=== PATIENT | female | born 1940 ===

== ENCOUNTER 2017-02-12 12:05 | Emergency (ER) | payer MEDICARE, OTHER ==
[2017-02-12 12:15] VITALS: BMI 26.5
--- NOTE | 2017-02-12 13:40 | RAD ---
HISTORY: Pneumonia COMPARISON: No prior. TECHNIQUE: Chest PA and lateral FINDINGS: LUNGS: No active pulmonary disease. PLEURA: No significant pleural effusion identified. No pneumothorax apparent. CARDIOVASCULAR: Mild cardiomegaly. OSSEOUS STRUCTURES: No significant abnormalities. VISUALIZED UPPER ABDOMEN: Normal. OTHER FINDINGS: None. IMPRESSION: No radiographic evidence of pneumonia. Mild cardiomegaly.
[2017-02-12 13:54] LABS: BASO % 0.5 % (0.0-2.0); EOS # 0.1 K/uL (0.0-0.7); EOS % 3.4 % (0.0-4.0); HEMATOCRIT 37.5 % (34.0-47.0); LYMPH # 1.2 K/uL (1.0-4.3); LYMPH % 30.8 % (20.0-40.0); MEAN CELL VOLUME 91.9 fL (81.0-99.0); MEAN CORPUSCULAR HEMOGLOBIN 30.6 pg (27.0-31.0); MEAN CORPUSCULAR HGB CONC 33.3 g/dL (33.0-37.0); MEAN PLATELET VOLUME 8.8 fL (7.2-11.7); MONO # 0.5 K/uL (0.0-0.8); NRBC % 0.1 % (0.0-2.0); WHITE BLOOD COUNT 3.8 K/uL (4.8-10.8)
[2017-02-12 14:03] LABS: CHLORIDE 99 mmol/L (98-107); POTASSIUM 4.1 mmol/L (3.6-5.2); SODIUM 139 mmol/L (132-148)
[2017-02-12 14:05] LABS: AST/SGOT 28 U/L (14-36); BILIRUBIN,TOTAL 0.4 mg/dL (0.2-1.3); CARBON DIOXIDE 31 mmol/L (22-30); GFR AFRICAN-AMERICAN > 60
[2017-02-12 14:06] LABS: ALB/GLOB RATIO 1.6 (1.0-2.1); ALKALINE PHOSPHATASE 85 U/L (38-126); ALT/SGPT 31 U/L (9-52); BLOOD UREA NITROGEN 19 mg/dL (7-17); GLUCOSE,RANDOM 94 mg/dL (65-105); TOTAL PROTEIN 6.9 g/dL (6.3-8.3)
[2017-02-12 15:44] VITALS: BP 140/71; PULSE 60; RESP 18; TEMP 97.9; O2SAT 100
--- NOTE | 2017-02-12 16:02 | C.PDOC ---
History Of Present Illness 77 y/o female presents to ED with c/o cough for 1 week. Patient states cough was initially productive, but at this time, is now scant. Patient reports (+) fever when cough started but not currently. Denies chest pain, shortness of breath, abdominal pain. Patient went to PMD, given Z pack and cough medicine, states she is feeling better. Chief Complaint (Nursing): Cough, Cold, Congestion History Per: Patient History/Exam Limitations: no limitations Onset/Duration Of Symptoms: Days Current Symptoms Are (Timing): Still Present Associated Symptoms: Cough. denies: Fever, Chills, Nasal Congestion, Vomiting Ear Symptoms: Bilateral: None Recent travel outside of the [place]: No Past Medical History Reviewed: Historical Data, Nursing Documentation, Vital Signs Vital Signs: Last Vital Signs Temp 97.9 F 02/12/17 15:42 Pulse 60 02/12/17 15:42 Resp 18 02/12/17 15:42 BP 140/71 02/12/17 15:42 Pulse Ox 100 02/12/17 16:03 - Medical History PMH: Gastritis, HTN, Hypercholesterolemia Family History: States: Unknown Family Hx - Social History Hx Alcohol Use: No Hx Substance Use: No - Immunization History Hx Tetanus Toxoid Vaccination: No Hx Influenza Vaccination: No Hx Pneumococcal Vaccination: Yes Review Of Systems Except As Marked, All Systems Reviewed And Found Negative. Constitutional: Negative for: Fever, Chills Cardiovascular: Negative for: Chest Pain Respiratory: Positive for: Cough. Negative for: Shortness of Breath, Wheezing Gastrointestinal: Negative for: Nausea, Vomiting, Abdominal Pain Skin: Negative for: Rash Physical Exam - Physical Exam Appears: Non-toxic, No Acute Distress Skin: Normal Color, Warm, Dry Head: Atraumatic, Normacephalic Oral Mucosa: Moist Chest: Symmetrical Cardiovascular: Rhythm Regular Respiratory: Normal Breath Sounds, No Rales, No Rhonchi, No Wheezing Gastrointestinal/Abdominal: Soft, No Tenderness, No Guarding, No Rebound Back: Normal Inspection Extremity: Normal ROM, Capillary Refill (< 2 sec. ) Neurological/Psych: Oriented x3, Normal Speech, Normal Cognition ED Course And Treatment - Laboratory Results Result Diagrams: 02/12/17 13:51 02/12/17 13:51 O2 Sat by Pulse Oximetry: 100 (RA) Pulse Ox Interpretation: Normal - Radiology CXR: Interpreted by Me CXR Interpretation: Yes: No Acute Disease Progress Note: Labs, CxR ordered and reviewed. On reassessment, patient is resting comfortably, and is in no acute distress. Patient instructed to follow up with clinic/PMD within 1-2 days. Disposition - Disposition Referrals: Matthew Katz, [Non-Staff] - Disposition: HOME/ ROUTINE Disposition Time: 14:20 Condition: GOOD Additional Instructions: Thank you for letting us take care of you today. Your provider was Dr. Harden. You were treated for cough. The emergency medical care you received today was directed at your acute symptoms. If you were prescribed any medication , please fill it and take as directed. It may take several days for your symptoms to resolve. Return to the Emergency Department if your symptoms worsen , do not improve, or if you have any other problems. Please contact your doctor or call one of the physicians/clinics you have been referred to that are listed on the Patient Visit Information form that is included in your discharge packet. Bring any paperwork you were given at discharge with you along with any medications you are taking to your follow up visit. Our treatment cannot replace ongoing medical care by a primary care provider (PCP) outside of the emergency department. Thank you for allowing the [facility] team to be part of your care today. Follow up with your doctor in 3-4 days for re-evaluation. Instructions: Upper Respiratory Infection (ED) - Clinical Impression Clinical Impression: Upper respiratory infection - Scribe Statement The provider has reviewed the documentation as recorded by the Lynibes Sam All medical record entries made by the Lynibes were at my direction and personally dictated by me. I have reviewed the chart and agree that the record accurately reflects my personal performance of the history, physical exam, medical decision making, and the department course for this patient. I have also personally directed, reviewed, and agree with the discharge instructions and disposition.
== END 2017-02-12 15:44 | disposition home or self-care (01) ==
LOC: C.ER 12:05
DX: J06.9 Acute upper respiratory infection, unspecified (principal)

== ENCOUNTER 2017-11-12 15:00 | Emergency (ER) | payer MEDICARE, OTHER ==
[2017-11-12 15:53] VITALS: BMI 28.0
[2017-11-12 15:56] VITALS: BP 188/79; PULSE 60; RESP 18; TEMP 98; O2SAT 100
--- NOTE | 2017-11-12 23:10 | C.PDOC ---
History Of Present Illness 77 y/o female presents to the ED requesting medication for the varicose veins on her left lower extremity. Patient states she is currently being treated at another facility and has been taking Tylenol and Gabapentin. She denies fever, chills, recent trauma/injuries, extremity numbness/weakness. Time Seen by Provider: 11/12/17 18:05 Chief Complaint (Nursing): Lower Extremity Problem/Injury History Per: Patient History/Exam Limitations: no limitations Onset/Duration Of Symptoms: Hrs Current Symptoms Are (Timing): Still Present Additional History Per: Patient Past Medical History Reviewed: Historical Data, Nursing Documentation, Vital Signs Vital Signs: Last Vital Signs Temp 98.0 F 11/12/17 15:53 Pulse 60 11/12/17 15:53 Resp 18 11/12/17 15:53 BP 188/79 H 11/12/17 15:53 Pulse Ox 100 11/12/17 23:14 - Medical History PMH: Gastritis, HTN, Hypercholesterolemia Surgical History: No Surg Hx Family History: States: Unknown Family Hx - Social History Hx Alcohol Use: No Hx Substance Use: No - Immunization History Hx Tetanus Toxoid Vaccination: No Hx Influenza Vaccination: No Hx Pneumococcal Vaccination: Yes Review Of Systems Constitutional: Negative for: Fever, Chills Skin: Positive for: Other (varicose veins in left leg ) Neurological: Negative for: Weakness, Numbness Physical Exam - Physical Exam Appears: Non-toxic, No Acute Distress Skin: Normal Color, Warm, Dry Head: Atraumatic, Normacephalic Eye(s): bilateral: Normal Inspection Oral Mucosa: Moist Neck: Supple Chest: Symmetrical, No Deformity, No Tenderness Cardiovascular: Rhythm Regular, No Murmur Respiratory: Normal Breath Sounds, No Rales, No Rhonchi, No Wheezing Extremity: Normal ROM, Capillary Refill (less than 2 seconds ), Other (varicose veins noted in left lower extremity. mild edema bilaterally ) Pulses: Left Dorsalis Pedis: Normal, Right Dorsalis Pedis: Normal Neurological/Psych: Oriented x3, Normal Speech, Normal Cognition Gait: Steady ED Course And Treatment O2 Sat by Pulse Oximetry: 100 (on RA) Pulse Ox Interpretation: Normal Disposition - Disposition Referrals: Randall Gates MD [Staff Provider] - Disposition: HOME/ ROUTINE Disposition Time: 18:30 Condition: GOOD Additional Instructions: Thank you for letting us take care of you today. The emergency medical care you received today was directed at your acute symptoms. If you were prescribed any medication, please fill it and take as directed. It may take several days for your symptoms to resolve. Return to the Emergency Department if your symptoms worsen, do not improve, or if you have any other problems. Please contact your doctor or call one of the physicians/clinics you have been referred to that are listed on the Patient Visit Information form that is included in your discharge packet. Bring any paperwork you were given at discharge with you along with any medications you are taking to your follow up visit. Our treatment cannot replace ongoing medical care by a primary care provider (PCP) outside of the emergency department. Thank you for allowing the [facility] team to be part of your care today. Follow up with the vascular surgeon next week for re-evaluation and further management. Prescriptions: traMADol [Ultram] 25 mg PO Q8 PRN #15 tab PRN Reason: Pain, Severe (8-10) Instructions: Varicose Veins (ED) Forms: [employer] (Austrian) - Clinical Impression Clinical Impression: Varicose veins of left lower extremity - Scribe Statement The provider has reviewed the documentation as recorded by the Scribe (Lilo Silverio) Provider Attestation: All medical record entries made by the Scribe were at my direction and personally dictated by me. I have reviewed the chart and agree that the record accurately reflects my personal performance of the history, physical exam, medical decision making, and the department course for this patient. I have also personally directed, reviewed, and agree with the discharge instructions and disposition.
== END 2017-11-12 18:30 | disposition home or self-care (01) ==
LOC: C.ER 15:00
DX: I83.92 Asymptomatic varicose veins of left lower extremity (principal); E78.00 Pure hypercholesterolemia, unspecified; I10 Essential (primary) hypertension

== ENCOUNTER 2018-06-14 09:16 | Emergency (ER) | payer MEDICARE, OTHER ==
[2018-06-14 09:17] VITALS: BMI 28.0
[2018-06-14 09:26] VITALS: RESP 18
--- NOTE | 2018-06-14 10:12 | C.PDOC ---
History Of Present Illness 78 y/o female,/PMhx of HTN and gastritis, presents to the ER complaining of diarrhea and rectal bleeding which has been present for the past 2 days. Patient is also complaining of lower abdominal pain. Abdominal pain is crampy, only when she has a BM, does not fill toilet bowel w/ blood. No recent travel abroad or exotic foods. Denies having nausea, vomiting, vaginal bleeding, chest pain, shortness of breath, dysuria, urgency or frequency. Time Seen by Provider: 06/14/18 10:11 Chief Complaint (Nursing): Abdominal Pain History Per: Patient History/Exam Limitations: no limitations Onset/Duration Of Symptoms: Days Current Symptoms Are (Timing): Still Present Severity: Moderate Past Medical History Reviewed: Historical Data, Nursing Documentation, Vital Signs Vital Signs: Last Vital Signs Temp 98.6 F 06/14/18 14:23 Pulse 60 06/14/18 14:23 Resp 18 06/14/18 14:23 BP 132/77 06/14/18 14:23 Pulse Ox 100 06/14/18 14:47 - Medical History PMH: Gastritis, HTN, Hypercholesterolemia Family History: States: No Known Family Hx - Social History Hx Alcohol Use: No Hx Substance Use: No - Immunization History Hx Tetanus Toxoid Vaccination: No Hx Influenza Vaccination: No Hx Pneumococcal Vaccination: Yes Review Of Systems Except As Marked, All Systems Reviewed And Found Negative. Constitutional: Negative for: Fever, Chills Eyes: Negative for: Pain ENT: Negative for: Ear Pain Cardiovascular: Negative for: Chest Pain, Palpitations Respiratory: Negative for: Cough Gastrointestinal: Positive for: Abdominal Pain, Diarrhea, Other (blood in stool) . Negative for: Nausea, Vomiting Genitourinary: Negative for: Dysuria, Frequency Musculoskeletal: Negative for: Neck Pain Physical Exam - Physical Exam Appears: Non-toxic, No Acute Distress Skin: Normal Color, Warm, Dry Head: Atraumatic, Normacephalic Eye(s): bilateral: Normal Inspection Nose: Normal Oral Mucosa: Moist Neck: Supple Chest: Symmetrical Cardiovascular: Rhythm Regular Respiratory: Normal Breath Sounds, No Rales, No Rhonchi, No Wheezing Gastrointestinal/Abdominal: Soft, Tenderness (RLQ, LLQ, and suprapubic tenderness), No Guarding, No Rebound Neurological/Psych: Oriented x3, Normal Speech ED Course And Treatment - Laboratory Results Result Diagrams: 06/14/18 11:13 06/14/18 11:13 O2 Sat by Pulse Oximetry: 100 (RA) Pulse Ox Interpretation: Normal - CT Scan/US CT- Abd & Pelv. Other Rad Studies (CT/US): Radiology Report Reviewed CT/US Interpretation: Date of service: 06/14/2018. PROCEDURE: CT Abdomen and Pelvis with contrast. HISTORY: abd pain, diarrhea. COMPARISON: No prior study available for comparison . TECHNIQUE: Contrast dose: 100 cc Visipaque 320. Radiation dose: Total exam DLP = 522.54 mGy-cm. This CT exam was performed using one or more of the following dose reduction techniques: Automated exposure control, adjustment of the mA and/or kV according to patient size, and/or use of iterative reconstruction technique. FINDINGS: LOWER THORAX : Lung bases are clear. Some vague scarring and/or pneumonitis changes right medial lung base and middle lobe and to a lesser degree lingular regions. . Heart appears mildly enlarged. . There is a small hiatal hernia. LIVER: Liver exhibits normal size measuring approximately 14 cm in CC dimension. There are multiple low-attenuation foci scattered throughout the hepatic parenchyma the largest in the posterior aspect right lobe bordering the surface measuring approximately 2.57 cm consistent with small cyst. . Two additional small foci posterior inferior right lobe liver measures approximately 14.4 cm and another along the inferomedial border adjacent to the gallbladder measures approximately 14.5 mm. The larger of foci probably represent small cysts with the smaller foci too small characterize though may also represent cyst. Amount of small the focus of low attenuation left lobe of the liver adjacent to the anterior to mid enhancing 6.7 mm rounded low attenuation lesion could represent a hemangioma of and/or hemangioma adjacent to a cyst. . For follow-up CT scan employing triple phase protocol in 3 months could be performed to assess stability. GALLBLADDER AND BILE DUCTS: Gallbladder is physiologically distended. No evidence intraluminal gallbladder calculi. . There is dilatation of the common bile duct. PANCREAS: Pancreas appears unremarkable without masses collections or calcifications. SPLEEN: Unremarkable. ADRENALS: No adrenal lesions. KIDNEYS AND URETERS: Kidneys demonstrate symmetric nephrograms. No evidence of nephrolithiasis or hydronephrosis. VASCULATURE: Unremarkable. No aortic aneurysm. BOWEL: Evaluation of the bowel is somewhat limited due to the lack of oral contrast material. Stomach is incompletely distended which in part accounts for thick-walled appearance. Possibility of a gastritis not excluded. Visualized loops of small bowel exhibit normal contour and caliber. No evidence of acute mechanical small bowel obstruction. There is a moderately large amount of stool seen within the cecum at ascending and proximal transverse colon. There is however a significant wall thickening of descending colon from the level of the hepatic flexure inferiorly with involvement of the sigmoid colon. Note also that there are multiple colonic diverticula along the sigmoid colon which are felt be incidental to this of probable infectious and or inflammatory colitis. APPENDIX: Normal appendix of best seen on sagittal sequence series 602 image number 51 [id number] 74. PERITONEUM: There is a small amount of free fluid seen in the pelvis. Small fat containing umbilical hernia. LYMPH NODES: Unremarkable. No enlarged lymph nodes. BLADDER: Urinary bladder is incompletely distended which may in part account for thick-walled appearance. Possibility of a cystitis must be considered and therefore correlation with urinalysis. REPRODUCTIVE: There are calcifications seen within the uterine fundus region could represent calcified uterine fibroids with peripheral vascular type calcifications as well. BONES: Multilevel degenerative spondylosis of the thoracic and lumbar spine. Slight anterior subluxation (approximately grade 1) L4 over L5 felt felt to be secondary to significant hypertrophic facets. . OTHER FINDINGS: None. IMPRESSION: Findings consistent with a colitis involving the descending and sigmoid colon. Colonic diverticular are also present along the sigmoid colon felt to be incidental however. Small amount of free fluid present within the pelvis. Mild fatty hepatic infiltration. Multiple low-attenuation foci scattered throughout the hepatic parenchyma the largest of which consistent with the cysts however the smaller lesions are too small characterize though may represent cysts well. There is also a small enhancing lesion within the left lobe adjacent to a small low-attenuation focus which could represent a hemangioma or hemangioma adjacent to a cyst. Followup [address] scan liver recommended 3 months for further evaluation and to assess to assess stability. Mild wall thickening of the stomach likely due to incomplete distention of gastritis not excluded. See above discussion for additional details findings and recommendations. Medical Decision Making Medical Decision Makin yr old female p/w lower abdominal pain w/ out vaginal d/c or rash- only w/ diarrhea and bloody stool. Plan: --Labs --UA --CT- Abd & Pelv. Guaic w/ out maroon or obviously bloody stool. No fall or trauma No blood thinner usage Will seek labs and imaging CT w/ colitis- pt notes she is feeling well however and feels like she is ok to go home. No nausea or vomiting. Pt notes that she has been able to control her pain thus far with tylenol. 1st dose abx given here, tolerted well. CT also w/ hepatic cysts and ?hemangioma, hgb normal, no RUQ pain. Endorsed to pt, who understands to follow up w/ GI for repeat imaging and further workup of cysts vs hemangioma will d/c pt home with abx, return indications and followup Disposition - Disposition Referrals: [facility] [Outside] Nhan Pastrana MD [Staff Provider] - Disposition: HOME/ ROUTINE Disposition Time: 14:00 Condition: GOOD Additional Instructions: VANESSA ARREGUIN, thank you for letting us take care of you today. Your provider was Harjit Buchanan and you were treated for RECTAL BLEEDING. The emergency medical care you received today was directed at your acute symptoms. If you were prescribed any medication, please fill it and take as directed. It may take several days for your symptoms to resolve. Return to the Emergency Department if your symptoms worsen, do not improve, or if you have any other problems. Please contact your doctor or call one of the physicians/clinics you have been referred to that are listed on the Patient Visit Information form that is included in your discharge packet. Bring any paperwork you were given at discharge with you along with any medications you are taking to your follow up visit. Our treatment cannot replace ongoing medical care by a primary care provider outside of the emergency department. Thank you for allowing the [facility] team to be part of your care today. If you had an X-Ray or CT scan: A Radiologist will review the ED reading if any change in treatment is needed we will contact you. If you had a blood, urine, or wound culture: It will take several days for the results, if any change in treatment is needed we will contact you. If you had an STI test: It will take 48 hours for the results. Please call after 1 week if you have not heard back. Prescriptions: Ciprofloxacin HCl [Cipro] 500 mg PO BID 14 Days #27 tab Metronidazole [Flagyl] 500 mg PO TID 14 Days #41 tablet Instructions: Diverticulitis Forms: [employer] (Bulgarian) - Clinical Impression Clinical Impression: Colitis - Scribe Statement The provider has reviewed the documentation as recorded by the Lynibe Froylan Grant Provider Attestation: All medical record entries made by the Scribe were at my direction and personally dictated by me. I have reviewed the chart and agree that the record accurately reflects my personal performance of the history, physical exam, medical decision making, and the department course for this patient. I have also personally directed, reviewed, and agree with the discharge instructions and disposition.
[2018-06-14 11:19] LABS: BASO % 0.4 % (0.0-2.0); EOS # 0.1 K/uL (0.0-0.7); EOS % 2.4 % (0.0-4.0); HEMOGLOBIN 12.8 g/dL (11.0-16.0); LYMPH # 1.3 K/uL (1.0-4.3); LYMPH % 24.6 % (20.0-40.0); MEAN CELL VOLUME 92.9 fL (81.0-99.0); MEAN CORPUSCULAR HEMOGLOBIN 31.9 pg (27.0-31.0); MEAN CORPUSCULAR HGB CONC 34.3 g/dL (33.0-37.0); MEAN PLATELET VOLUME 9.5 fL (7.2-11.7); MONO # 0.5 K/uL (0.0-0.8); MONO % 9.4 % (0.0-10.0); NEUT # 3.3 K/uL (1.8-7.0); NEUT % 63.2 % (50.0-75.0); RBC 4.01 Mil/uL (3.80-5.20); RED CELL DISTRIBUTION WIDTH 13.6 % (11.5-14.5); WHITE BLOOD COUNT 5.2 K/uL (4.8-10.8)
[2018-06-14 11:40] LABS: ALB/GLOB RATIO 1.7 (1.0-2.1); ALBUMIN 4.2 g/dL (3.5-5.0); BLOOD UREA NITROGEN 12 mg/dL (7-17); CALCIUM 8.9 mg/dl (8.6-10.4); GFR NON-AFRICAN AMERICAN > 60; LIPASE 96 U/L (23-300)
[2018-06-14 11:46] LABS: ALT/SGPT 27 U/L (9-52); AST/SGOT 34 U/L (14-36)
[2018-06-14 11:58] LABS: SQUAMOUS EPITHIAL 10 /hpf (0-5); URINE BILIRUBIN NEGATIVE (NEGATIVE); URINE BLOOD 1+ (NEGATIVE); URINE CLARITY Clear (Clear); URINE COLOR Yellow (YELLOW); URINE GLUCOSE (UA) NORMAL (Normal); URINE LEUKOCYTE ESTERASE TRACE Leu/uL (Negative); URINE PROTEIN NEGATIVE (NEGATIVE); URINE UROBILINOGEN NORMAL mg/dL (0.2-1.0)
[2018-06-14 12:19] VITALS: PULSE 60
[2018-06-14] MEDS ORDERED: Iodixanol 320 mg/ml 150 ml Bottle IV ONE (12:39)
--- NOTE | 2018-06-14 13:47 | CT ---
Date of service: 06/14/2018 PROCEDURE: CT Abdomen and Pelvis with contrast HISTORY: abd pain, diarrhea COMPARISON: No prior study available for comparison . TECHNIQUE: Contrast dose: 100 cc Visipaque 320 Radiation dose: Total exam DLP = 522.54 mGy-cm. This CT exam was performed using one or more of the following dose reduction techniques: Automated exposure control, adjustment of the mA and/or kV according to patient size, and/or use of iterative reconstruction technique. FINDINGS: LOWER THORAX: Lung bases are clear. Some vague scarring and/or pneumonitis changes right medial lung base and middle lobe and to a lesser degree lingular regions. . Heart appears mildly enlarged. . There is a small hiatal hernia. LIVER: Liver exhibits normal size measuring approximately 14 cm in CC dimension. There are multiple low-attenuation foci scattered throughout the hepatic parenchyma the largest in the posterior aspect right lobe bordering the surface measuring approximately 2.57 cm consistent with small cyst. . Two additional small foci posterior inferior right lobe liver measures approximately 14.4 cm and another along the inferomedial border adjacent to the gallbladder measures approximately 14.5 mm. The larger of foci probably represent small cysts with the smaller foci too small characterize though may also represent cyst. Amount of small the focus of low attenuation left lobe of the liver adjacent to the anterior to mid enhancing 6.7 mm rounded low attenuation lesion could represent a hemangioma of and/or hemangioma adjacent to a cyst. . For follow-up CT scan employing triple phase protocol in 3 months could be performed to assess stability. GALLBLADDER AND BILE DUCTS: Gallbladder is physiologically distended. No evidence intraluminal gallbladder calculi. . There is dilatation of the common bile duct. PANCREAS: Pancreas appears unremarkable without masses collections or calcifications. SPLEEN: Unremarkable. ADRENALS: No adrenal lesions. KIDNEYS AND URETERS: Kidneys demonstrate symmetric nephrograms. No evidence of nephrolithiasis or hydronephrosis. VASCULATURE: Unremarkable. No aortic aneurysm. BOWEL: Evaluation of the bowel is somewhat limited due to the lack of oral contrast material. Stomach is incompletely distended which in part accounts for thick-walled appearance. Possibility of a gastritis not excluded. Visualized loops of small bowel exhibit normal contour and caliber. No evidence of acute mechanical small bowel obstruction. There is a moderately large amount of stool seen within the cecum at ascending and proximal transverse colon. There is however a significant wall thickening of descending colon from the level of the hepatic flexure inferiorly with involvement of the sigmoid colon. Note also that there are multiple colonic diverticula along the sigmoid colon which are felt be incidental to this of probable infectious and or inflammatory colitis. APPENDIX: Normal appendix of best seen on sagittal sequence series 602 image number 51 [id number] 74. PERITONEUM: There is a small amount of free fluid seen in the pelvis. Small fat containing umbilical hernia LYMPH NODES: Unremarkable. No enlarged lymph nodes. BLADDER: Urinary bladder is incompletely distended which may in part account for thick-walled appearance. Possibility of a cystitis must be considered and therefore correlation with urinalysis. REPRODUCTIVE: There are calcifications seen within the uterine fundus region could represent calcified uterine fibroids with peripheral vascular type calcifications as well. BONES: Multilevel degenerative spondylosis of the thoracic and lumbar spine. Slight anterior subluxation (approximately grade 1) L4 over L5 felt felt to be secondary to significant hypertrophic facets. . OTHER FINDINGS: None. IMPRESSION: Findings consistent with a colitis involving the descending and sigmoid colon. Colonic diverticular are also present along the sigmoid colon felt to be incidental however. Small amount of free fluid present within the pelvis. Mild fatty hepatic infiltration. Multiple low-attenuation foci scattered throughout the hepatic parenchyma the largest of which consistent with the cysts however the smaller lesions are too small characterize though may represent cysts well. There is also a small enhancing lesion within the left lobe adjacent to a small low-attenuation focus which could represent a hemangioma or hemangioma adjacent to a cyst. Followup [address] scan liver recommended 3 months for further evaluation and to assess to assess stability. Mild wall thickening of the stomach likely due to incomplete distention of gastritis not excluded. See above discussion for additional details findings and recommendations.
[2018-06-14 14:24] VITALS: BP 132/77; TEMP 98.6
[2018-06-14 14:47] VITALS: O2SAT 100
--- NOTE | 2018-06-15 12:57 | CARD ---
APPROVED REPORT Date of service: 06/14/2018 EKG Measurement Heart [id number] [id number] <Conclusion> Sinus bradycardia Otherwise normal ECG
== END 2018-06-14 15:11 | disposition home or self-care (01) ==
LOC: C.ER 09:16
DX: K52.9 Noninfective gastroenteritis and colitis, unspecified (principal)
CPT/HCPCS: 74177; 80053; 81001; 83690; 85025; 86850; 86900; 93005; 99285; G0328; Q9967